=== PATIENT | male | born 1975 | race Caucasian/White ===

== ENCOUNTER 2016-12-11 04:00 | Observation (INO) ==
[2016-12-11] MEDS ORDERED: Ondansetron 4 MG/2 ML VIAL IVP PRN ×2 (06:55→18:37)
[2016-12-11] MEDS ORDERED: *HR* Metoprolol 5 MG/5 ML VIAL IVP PRN ×2 (06:58→18:37)
[2016-12-11] MEDS ORDERED: Pantoprazole 40 MG VIAL IVP SCH (09:00)
[2016-12-11] MEDS: 0.9 % Sodium Chloride 1,000 ML IVC SCH ×3 (09:01→23:45)
[2016-12-11] MEDS: Piperacillin/Tazobactam 3.375 GM in D5% in Water (Mini-Bag+) 100 ML IVPB SCH ×2 (09:01→17:08)
[2016-12-11] MEDS: *HR* Metoprolol 5 MG/5 ML VIAL IVP SCH ×4 (09:01→23:49)
[2016-12-11] MEDS: *HR* Morphine 2 MG/ML SYRINGE IVP PRN ×2 (09:20→13:31)
[2016-12-11] MEDS ORDERED: Naloxone 0.4 MG/ML INJ IVP PRN ×2 (09:27→18:37)
--- NOTE | 2016-12-11 09:41 | General Surg History&Physical ---
Date of Encounter: 12/11/16 Time of Encounter: 09:40 Assessment and Plan (1) Hypertension Current Visit: Yes Status: Chronic The assessment and plan as outlined above was discussed with the patient and/or family members who expressed understanding and agreement. All questions were answered. Qualifiers: Hypertension type: essential hypertension Qualified Code(s): I10 - Essential (primary) hypertension (2) DVT prophylaxis Current Visit: Yes Status: Acute The assessment and plan as outlined above was discussed with the patient and/or family members who expressed understanding and agreement. All questions were answered. (3) Acute appendicitis Current Visit: No Status: Acute The assessment and plan as outlined above was discussed with the patient and/or family members who expressed understanding and agreement. All questions were answered. Discussed CT scan, labs, physical exam findings with patient. He is acute appendicitis and a fecalith. We will plan a laparoscopic appendectomy, possible open. Risks and benefits were discussed with the patient and he wishes to proceed. He will remain nothing by mouth, IV fluid hydration with normal saline, when necessary pain control and antibiotics. Continue Zosyn every 8 hours. Qualifiers: Acute appendicitis type: with localized peritonitis Qualified Code(s): K35.3 - Acute appendicitis with localized peritonitis (4) Nausea Current Visit: Yes Status: Acute The assessment and plan as outlined above was discussed with the patient and/or family members who expressed understanding and agreement. All questions were answered. When necessary antibiotics History of Present Illness Chief complaint: abdominal pain, nausea HPI: Mr. Dumont is a 40 year old male who came to [facility] last evening with complaints of abdominal pain. It first started after he had lunch with his were he was complaining of a significant amount of heartburn and reflux. Throughout the day his discomfort progressed to right lower quadrant sharp pain without radiation. He has been having nausea will but with dry heaves and no emesis. His any diarrhea or dysuria. He has no fevers chills or night sweats. He presented to the [facility] and a CT scan was done which shows an acute appendicitis with an appendicolith. White blood cell count was normal. Transferred here to [place] for surgery Past Med Surg Social Fam HX - Past Medical History Source: patient Medical history: hypertension Psychiatric history: no psych history - Past Surgical History Surgical History: vasectomy, other (Vaughn teeth extraction) - Social History Smoking Status: Never smoker Smokeless Tobacco Status: No Alcohol use: rarely Drug use: none - Family History Grandmother History Unknown: Yes Medications and Allergies No Known Home Drugs 12/11/16 [History] 3 Allergy/AdvReac Type Severity Reaction Status Date / Time No Known Allergies Allergy Verified 12/11/16 02:32 Review of Systems All systems PM: reviewed and no additional remarkable complaints except as stated All systems PM: A 10-system review of systems was performed and is negative for pertinent findings except as documented above in the HPI. General Surgery Exam Initial Vital Signs Temp Pulse Resp BP Pulse Ox 98.4 F 73 16 167/77 95 12/11/16 05:49 12/11/16 05:49 12/11/16 05:49 12/11/16 05:49 12/11/16 05:49 - General physical appearance well developed, well nourished, no distress - Eyes PERRL, normal ocular movement - ENT normal mucosa, normocephalic - Neck trachea midline - Respiratory normal expansion, clear to auscultation - Cardiovascular Cardiovascular exam: Present: RRR - Abdomen Abdomen general surgery: Present: bowel sounds present, soft, tender. Absent: distended, guarding, rebound Abdominal Tenderness: Present: RLQ - Integumentary Integumentary general surgery: Present: warm and dry, no abnormal pigmentation - Neurologic Present: CN 2-12 grossly intact - Musculoskeletal Present: normal gait, normal posture - Psychiatric Psychiatric general surgery: Present: A&Ox3 Results - Labs White blood cell count 8.5, hemoglobin 14.8, creatinine 0.98 - Imaging CT scan - abdomen: report reviewed, image reviewed CT scan - pelvis: report reviewed, image reviewed
--- NOTE | 2016-12-11 15:39 | Anesthesia Evaluation PreOp ---
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: Denies Any Significant HX Other Medical History: GERD Anesthesia History: No Prior Anesthetic Complications, Past Anesthesia Alcohol Use: rarely Drug use: none Medications and Allergies No Known Home Drugs 12/11/16 [History] 3 Allergy/AdvReac Type Severity Reaction Status Date / Time No Known Allergies Allergy Verified 12/11/16 02:32 - Meds/Allergy Pre-op Review Medications Reviewed: Yes Allergies Reviewed: Yes Beta Blockers on Current Med List: No Anesthesia Exam Vital Signs/O2 Sat, Most Current Temp Pulse Resp BP Pulse Ox 99.1 F 81 15 141/86 98 12/11/16 11:22 12/11/16 11:22 12/11/16 11:22 12/11/16 11:22 12/11/16 11:22 Height: 5'10"/1.78 m Weight: 216 lbs/97.976 kg NPO (# of Hours): 8 Pain Scale: 3 Pain Scale Used: Numeric (1 - 10) - HEENT Pupil (Motor): EOMI Mallampati: II Teeth: Normal Oral Opening: Greater than 3 - COPIER FIELD SERVICE TECHNICIAN LOC: Oriented [employer]IER FIELD SERVICE TECHNICIAN Motor: Normal RUE, Normal LUE, Normal RLE, Normal LLE, Normal Face [employer]IER FI[employer] SERVICE TECHNICIAN Sensory: Normal: RUE, LUE, RLE, LLE, Face - Cardiac Rhythm: Regular Murmur: None - Pulmonary Breath Sounds: bilateral Clear Respiratory Effort: Symmetrical Anesthesia Assess/Plan ASA Score: 2 Modified Broussard Scale for Level of Consciousness: Cooperative, oriented, and tranquil Anesthetic Plan: General Monitoring Plan: Standard Monitors Recovery Plan: PACU
[2016-12-11] MEDS ORDERED: Lidocaine -MPF 2% 2 ML VIAL ONE (16:00)
[2016-12-11] MEDS ORDERED: Ondansetron 4 MG/2 ML VIAL ONE (16:00)
[2016-12-11] MEDS ORDERED: *HR* FentaNYL (PF) 100 MCG/2 ML VIAL ONE (16:00)
[2016-12-11] MEDS ORDERED: Neostigmine Methylsulfate 3 MG/3 ML SYRINGE ONE (16:00)
[2016-12-11] MEDS ORDERED: Dexamethasone 4 MG/ML VIAL ONE (16:00)
[2016-12-11] MEDS ORDERED: *HR* Propofol 200 MG/20 ML VIAL IVP ONE (16:00)
[2016-12-11] MEDS ORDERED: *HR* Rocuronium Bromide 50 MG/5 ML VIAL ONE (16:00)
[2016-12-11] MEDS ORDERED: *HR* Midazolam HCl 2 MG/2 ML VIAL ONE (16:00)
[2016-12-11] MEDS ORDERED: *HR* Succinylcholine 200 MG/10 ML VIAL IVP ONE (16:00)
[2016-12-11] MEDS ORDERED: Lidocaine -MPF 4% 5 ML AMPUL ONE (16:00)
[2016-12-11] MEDS ORDERED: *HR* HYDROmorphone 2 MG/ML SYRINGE ONE (17:16)
[2016-12-11] MEDS ORDERED: *HR* Metoprolol 5 MG/5 ML VIAL IVP ONE (17:17)
[2016-12-11] MEDS ORDERED: *HR* Promethazine 25 MG/ML VIAL IVP PRN (17:26)
[2016-12-11] MEDS ORDERED: *HR* HYDROmorphone (PF) 1 MG/ML SYRINGE IVP PRN (17:26)
--- NOTE | 2016-12-11 17:28 | Operative Note ---
Date of procedure: 12/11/16 Pre-op diagnosis: acute appendicitis Post-op diagnosis: same Procedure: Laparoscopic appendectomy Complications: none immediate Anesthesia: GETA, local Local Anesthetics: 0.5% Sensorcaine HCL SubQ (cc) (30) Surgeon: Charlene Madrid Oil Rig Driller: Charlette Vang Estimated blood loss (cc): 10 Specimen: appendix Condition: stable Disposition: PACU Procedure in Detail: The patient was brought into the operating suite and placed supine on the operating table. Sign-in was performed and everyone was in agreement. Anesthesia was induced and patient was endotracheally intubated by anesthesia without incident. An OG tube was placed by anesthesia. The abdomen was prepped and draped in the usual sterile fashion. A timeout was performed and again everyone was in agreement. A supraumbilical incision was made through the skin and the subcutaneous tissue with an 11 blade. Towel clamps were placed on either side of the umbilicus for retraction. S-retractors were used to dissect down to the anterior abdominal wall linea alba fascia. A Veress needle was placed into this incision and a water drop test confirmed placement and the abdomen was insufflated. We then entered the abdomen with the 5 mm 0 degree laparoscope on a 5 mm X-james trocar. The area under entry was visualized and there was no bleeding and no apparent bowel injury. We placed a suprapubic 5 mm port under direct visualization after first incising the skin with an 11 blade. The laparoscope was placed through this and we exchanged the supraumbilical port for a 12 mm port under direct visualization. We then placed another 5 mm port in the left lower quadrant position under direct visualization after first incising the skin with an 11 blade. The patient was placed in slight Trendelenburg left side down position. The cecum was located as was the appendix. The appendix was grasped and retracted anteriorly and caudally with a laparoscopic [place]. A [place] was used to dissect between the mesoappendix and the appendix at the base of the cecum. The mesoappendix was transected with a laparoscopic flex-ex ETS stapler using a white load. The appendix was transected at the base of the cecum with the same stapler utilizing a white load. The appendix was placed in a laparoscopic Endo Catch bag and removed via the supraumbilical incision site. Both staple lines were evaluated and there was no bleeding and both staple lines were intact. The area was irrigated with sterile saline which was then suctioned free from the abdomen. The insufflation was suctioned free from the abdomen and all trochars removed. We closed the abdominal wall at the supraumbilical incision site with an 0 Vicryl [id number] stitch. A 30 cc of 0.5% Marcaine was injected subcutaneously at the 3 port sites. The skin at the two 5 mm port sites was closed with 4-0 Monocryl interrupted subcuticular stitches. The skin at the supraumbilical incision site was closed with a 4-0 Monocryl running subcuticular stitch. Steri-Strips were applied to the wounds. The patient was extubated in the OR and tolerated the procedure well and was taken to PACU after all lap and instrument counts were correct at the end of the case.
--- NOTE | 2016-12-11 17:32 | Discharge Summary ---
<Charlene Madrid - Last Filed: 12/11/16 17:30> Date of Encounter: 12/12/16 Time of Encounter: 13:00 - Discharge Diagnosis (1) Hypertension Priority: Secondary Status: Chronic Qualifiers: Hypertension type: essential hypertension Qualified Code(s): I10 - Essential (primary) hypertension (2) DVT prophylaxis Priority: Secondary Status: Acute (3) Acute appendicitis Priority: Primary Status: Acute Qualifiers: Acute appendicitis type: with localized peritonitis Qualified Code(s): K35.3 - Acute appendicitis with localized peritonitis (4) Nausea Status: Acute - Discharge Medications Prescriptions: OxyCODONE/APAP 5/325 [Percocet 5/325 MG] 1 each PO Q4HR PRN #30 tablet PRN Reason: Pain Docusate [Colace] 100 mg PO BID #30 capsule Home Medications: Docusate [Colace] 100 mg PO BID #30 capsule 12/11/16 [Rx] No Known Home Drugs 12/11/16 [History] OxyCODONE/APAP 5/325 [Percocet 5/325 MG] 1 each PO Q4HR PRN #30 tablet 12/11/16 [Rx] Allergies/Adverse Reactions: 3 Allergy/AdvReac Type Severity Reaction Status Date / Time No Known Allergies Allergy Verified 12/11/16 02:32 General Surgery Exam Initial Vital Signs Temp Pulse Resp BP Pulse Ox 98.4 F 73 16 167/77 95 12/11/16 05:49 12/11/16 05:49 12/11/16 05:49 12/11/16 05:49 12/11/16 05:49 - General physical appearance well developed, well nourished, no distress - Eyes PERRL, normal ocular movement - ENT normal mucosa, normocephalic - Neck trachea midline - Respiratory normal expansion, normal respiratory effort - Cardiovascular Cardiovascular exam: Present: RRR - Abdomen Abdomen general surgery: Present: bowel sounds present, soft, tender ( appropriate post op tenderness). Absent: guarding, rebound - Incision Incision: Present: clean and dry, intact - Integumentary Integumentary general surgery: Present: warm and dry, no abnormal pigmentation - Neurologic Present: CN 2-12 grossly intact - Musculoskeletal Present: normal gait, normal posture - Psychiatric Psychiatric general surgery: Present: A&Ox3, speech is normal Date of admission: 12/11/16 05:29 Primary care physician: Jus Grey MD Discharging clinician: Charlene Madrid Anticipated date of discharge: 12/12/16 - Patient Status Disposition: Home, Self-Care Overall status at discharge: patient is progressing back to baseline - Discharge Instructions Instructions: Laparoscopic Appendectomy (DC) Follow Up With: Jus Grey MD [Primary Care Provider] - Marcy Tejeda CNP [Advanced Practice Nurse] - (2 weeks for post op check) Additional Instructions: No lifting more than 20 pounds for 2 weeks. Okay to take a shower in 24 hours. No tub baths or pools for 1 week. Okay to ride in the car wearing a seatbelt and climb steps. No driving until off narcotics for 24 hours and able to react safely Remove Steri-Strips in 1 week Do not take pain medicine/narcotics on an empty stomach it will likely cause nausea and possibly vomiting. If pain medication is too strong okay to break in half - Diet and Activity Activity: increase activity as tolerated Diet: advance to your usual diet - Hospital Course Hospital course: Mr. Dumont is a 40 year old male was admitted to the hospital with acute appendicitis. He was started on IV antibiotics, kept nothing by mouth, when necessary pain control, hydrated with IV fluids. He was taken to the OR on for an uncomplicated laparoscopic appendectomy. He was discharged home the following day in stable condition, vital signs were stable, up ambulating well. Having appropriate bowel and bladder function. - Time Spent with Patient Total time spent providing and/or coordinating discharge services: <Augusto Zhang - Last Filed: 12/12/16 12:10> Date of Encounter: 12/12/16 - Discharge Diagnosis (1) Acute appendicitis Status: Acute Qualifiers: Acute appendicitis type: with localized peritonitis Qualified Code(s): K35.3 - Acute appendicitis with localized peritonitis General Surgery Exam Initial Vital Signs Temp Pulse Resp BP Pulse Ox 98.4 F 73 16 167/77 95 12/11/16 05:49 12/11/16 05:49 12/11/16 05:49 12/11/16 05:49 12/11/16 05:49 Date of admission: 12/11/16 05:29 Primary care physician: Jus Grey MD - Hospital Course Hospital course: Due to minimal pain and ability to tolerate PO diet he was discharged home on with instructions to follow up in two weeks. No heavy lifting greater than 15lbs for two weeks. - Time Spent with Patient Total time spent providing and/or coordinating discharge services: Labs on day of discharge: Labs from last 24 hours 12/12/16 12/12/16 04:59 04:59 WBC 10.0 RBC 4.06 L Hgb 12.9 D Hct 36.6 L MCV 90.1 MCH 31.8 MCHC 35.2 RDW 12.4 Plt Count 125 L MPV 11.1 Immature Gran % 0.3 Seg Neutrophils % 87.8 Lymphocytes % 6.2 Monocytes % 5.6 Eosinophils % 0.0 Basophils % 0.1 Neutrophils # 8.8 Lymphocytes # 0.6 Monocytes # 0.6 Eosinophils # 0.0 Basophils # 0.0 Sodium 136 Potassium 3.9 Chloride 104 Carbon Dioxide 23 BUN 12 Creatinine 1.07 Est GFR ( Amer) > 60 Est GFR (Non-Af Amer) > 60 BUN/Creatinine Ratio 11 Glucose 149 H Calculated Osmolality 285 Calcium 9.1
--- NOTE | 2016-12-11 18:36 | Anesthesia Evaluation Post Op ---
Date of Encounter: 12/11/16 Time of Encounter: 18:06 - Vital Signs Vital Signs: Vital Signs/O2 Sat, Most Current Temp Pulse Resp BP Pulse Ox 98.9 F 89 20 125/77 93 12/11/16 18:11 12/11/16 18:11 12/11/16 18:11 12/11/16 18:11 12/11/16 18:11 - Lungs Lungs: Clear Ascult./Percussion - Airway Airway: Non-obstructed - Cardiovascular Regular Rate - Mental Status Mental Status: Alert & Oriented, Answers Appropriately - Pain Pain Scale: 3 Pain Scale used: Numeric (1 - 10) - Nausea Vomiting Nausea Vomiting: Not Present - Hydration Hydration: Ice chips, Has not voided - Discharge PostOp Status: Transfer Patient to floor
[2016-12-11] MEDS ORDERED: *HR* OxyCODONE/APAP 5/325 TABLET PO PRN (18:37)
[2016-12-11] MEDS ORDERED: *HR* Morphine 2 MG/ML SYRINGE IVP PRN (18:37)
[2016-12-12] MEDS ORDERED: Piperacillin/Tazobactam 3.375 GM in D5% in Water (Mini-Bag+) 100 ML IVPB SCH
[2016-12-12 05:22] LABS: Basophils % 0.1 %; Hematocrit 36.6 % (37.5-50.1); Hemoglobin 12.9 g/dL (12.9-16.9); Immature Granulocytes % 0.3 % (0-4); Lymphocytes # 0.6 K/mcL (0.6-4.6); Lymphocytes % 6.2 %; Mean Corpuscular HGB Conc 35.2 g/dL (31.6-35.5); Mean Corpuscular Hemoglobin 31.8 pg (28.0-33.3); Mean Corpuscular Volume 90.1 fL (83.0-100.0); Mean Platelet Volume 11.1 fL (9.4-12.4); Monocytes # 0.6 K/mcL (0.0-1.3); Monocytes % 5.6 %; Neutrophils # 8.8 K/mcL (1.6-8.9); Platelet Count 125 K/mcL (140-400); Red Blood Count 4.06 M/mcL (4.19-5.50); Red Cell Distribution Width 12.4 % (11.5-14.5); Segmented Neutrophils % 87.8 %
[2016-12-12] MEDS: 0.9 % Sodium Chloride 1,000 ML IVC SCH (05:51)
[2016-12-12] MEDS: *HR* Metoprolol 5 MG/5 ML VIAL IVP SCH ×2 (05:51→11:56)
[2016-12-12 06:05] LABS: BUN/Creatinine Ratio 11 (6-26); Blood Urea Nitrogen 12 mg/dL (8-26); Calcium 9.1 mg/dL (8.6-10.8); Carbon Dioxide 23 mEq/L (19-29); Chloride 104 mEq/L (98-109); Glucose 149 mg/dL (70-99); Osmolality,Calculated 285 (280-300); Potassium 3.9 mEq/L (3.5-4.5); Sodium 136 mEq/L (136-145); eGFR For African Americans > 60 (> 60); eGFR For Non-African Americans > 60 (> 60)
[2016-12-12] MEDS ORDERED: Pantoprazole 40 MG VIAL IVP SCH (09:00)
[2016-12-12 11:23] VITALS: BP 119/72
--- NOTE | 2016-12-12 12:08 | General Surgery Progress Note ---
Date of Encounter: 12/12/16 Time of Encounter: 12:06 - Assessment and Plan (1) Acute appendicitis Current Visit: No Status: Acute Patient is POD #1 from a laparascopic appendectomy. Doing well. Will discharge home and have patient follow up in two weeks. Qualifiers: Acute appendicitis type: with localized peritonitis Qualified Code(s): K35.3 - Acute appendicitis with localized peritonitis Subjective Patient reports: no new complaints, feels better (Patient admits to some upper abdominal and incisional tenderness. No nausea or vomiting.) Objective Vital Signs - Last 8 Hours Temp Pulse Resp BP Pulse Ox 12/12/16 11:22 98.2 F 69 14 119/72 96 12/12/16 07:36 97.8 F 57 16 113/66 95 Intake and Output 12/11/16 12/12/16 12/12/16 23:59 07:59 15:59 Intake Total 100 / 100 Output Total 10 / 10 Balance 90 / 90 Intake: IV Fluids 100 / 100 Zosyn 3.375 GM In 100 / 100 Dextrose 5% (Minibag+) 100 ML 100 ML @ 25 mls/hr IVPB Q8HR [facility] Rx#: [id number] Output: Estimated Blood Loss Other: Weight 96.388 kg Patient Weight 12/12/16 23:59 Weight 96.388 kg - General physical appearance well nourished, no distress - Abdomen Abdomen: Present: soft, tender (Mild perumbilical tenderness. Steri-strips in place.) - Labs 12/12/16 04:59 12/12/16 04:59 Diabetes panel 12/12/16 Range/Units 04:59 Sodium 136 (136-145) mEq/L Potassium 3.9 (3.5-4.5) mEq/L Chloride 104 (98-109) mEq/L Carbon Dioxide 23 (19-29) mEq/L BUN 12 (8-26) mg/dL Creatinine 1.07 (0.72-1.25) mg/dL Glucose 149 H (70-99) mg/dL Calcium 9.1 (8.6-10.8) mg/dL Calcium panel 12/12/16 Range/Units 04:59 Calcium 9.1 (8.6-10.8) mg/dL Pituitary panel 12/12/16 Range/Units 04:59 Sodium 136 (136-145) mEq/L Potassium 3.9 (3.5-4.5) mEq/L Chloride 104 (98-109) mEq/L Carbon Dioxide 23 (19-29) mEq/L BUN 12 (8-26) mg/dL Creatinine 1.07 (0.72-1.25) mg/dL Glucose 149 H (70-99) mg/dL Calcium 9.1 (8.6-10.8) mg/dL Adrenal panel 12/12/16 Range/Units 04:59 Sodium 136 (136-145) mEq/L Potassium 3.9 (3.5-4.5) mEq/L Chloride 104 (98-109) mEq/L Carbon Dioxide 23 (19-29) mEq/L BUN 12 (8-26) mg/dL Creatinine 1.07 (0.72-1.25) mg/dL Glucose 149 H (70-99) mg/dL Calcium 9.1 (8.6-10.8) mg/dL Consult Discharge Plan - Plan Instructions: Laparoscopic Appendectomy (DC) Additional Instructions: No lifting more than 20 pounds for 2 weeks. Okay to take a shower in 24 hours. No tub baths or pools for 1 week. Okay to ride in the car wearing a seatbelt and climb steps. No driving until off narcotics for 24 hours and able to react safely Remove Steri-Strips in 1 week Do not take pain medicine/narcotics on an empty stomach it will likely cause nausea and possibly vomiting. If pain medication is too strong okay to break in half Referrals: Jus Grey MD [Primary Care Provider] - Marcy Tejeda CNP [Advanced Practice Nurse] - (2 weeks for post op check) Prescriptions: OxyCODONE/APAP 5/325 [Percocet 5/325 MG] 1 each PO Q4HR PRN #30 tablet PRN Reason: Pain Docusate [Colace] 100 mg PO BID #30 capsule
== END 2016-12-12 14:07 | disposition home or self-care (01) ==
LOC: 3BNU
PROVIDERS: ADMIT Surgery; ATTEND Surgery